=== PATIENT | female | born 1955 | race American Indian/Alaskan Native ===

== ENCOUNTER 2021-12-16 12:08 | Observation (INO) | payer OTHER, MEDICARE ==
[2021-12-16] MEDS ORDERED: SODIUM CHLORIDE 0.9% 1000 ML 1,000 ML IV ONE (14:36)
[2021-12-16] MEDS ORDERED: ONDANSETRON 4 MG/2 ML INJ IV ONE (14:37)
[2021-12-16] MEDS ORDERED: MECLIZINE 25 MG TAB PO ONE (14:37)
--- NOTE | 2021-12-16 15:43 | XRay Report ---
CHEST 1 VIEW, 12/16/2021 3:16 PM CLINICAL INFORMATION/INDICATION: Syncope COMPARISON: None. FINDINGS: SUPPORT DEVICES: None. HEART: The cardiac silhouette is normal in size. LUNGS/PLEURA: The lungs are clear of focal airspace disease or significant pleural effusion. ADDITIONAL FINDINGS: No additional acute findings. IMPRESSION: 1. No evidence of acute cardiopulmonary process. Signer Name: Amada Guevara MD Signed: 12/16/2021 3:38 PM Workstation Name: [id number]
[2021-12-16 15:55] LABS: Basophils # (Auto) 0.1 K/mm3 (0.0-0.1); Basophils % (Auto) 0.7 % (0.0-1.8); Eosinophils % (Auto) 0.1 % (0.0-4.3); Hematocrit 43.6 % (30.3-42.9); Hemoglobin 13.7 gm/dl (10.1-14.3); Lymphocytes # (Auto) 0.9 K/mm3 (1.2-5.4); Lymphocytes % (Auto) 7.5 % (13.4-35.0); Mean Corpuscular HGB Conc 31 % (30-34); Mean Corpuscular Volume 92 fl (79-97); Monocytes # (Auto) 0.3 K/mm3 (0.0-0.8); Monocytes % (Auto) 2.5 % (0.0-7.3); Platelet Count 284 K/mm3 (140-440); Red Blood Count 4.76 M/mm3 (3.65-5.03); Red Cell Distribution Width 13.5 % (13.2-15.2)
[2021-12-16 16:03] LABS: INR 0.92 (0.87-1.13)
[2021-12-16 16:21] LABS: Alanine Aminotransferase 34 units/L (7-56); Albumin 4.3 g/dL (3.9-5); BUN/Creatinine Ratio 26; Blood Urea Nitrogen 18 mg/dL (7-17); Calcium 10.4 mg/dL (8.4-10.2); Creatine Kinase MB 4.6 ng/mL (0.0-4.0); Hemolysis Index 11
--- NOTE | 2021-12-16 16:29 | Cat Scan Report ---
CT head/brain wo con INDICATION: Syncope. TECHNIQUE: Routine CT head. All CT scans at this location are performed using CT dose reduction for A JIMMY by means of automated exposure control. COMPARISON: None. FINDINGS: Intracranial: Robert-white matter differentiation loss in the inferior right cerebellum. No intracrania l hemorrhage. No extra axial collection. No hydrocephalus. No herniation. Sinuses: Paranasal sinuses and mastoid air cells are essentially clear. Orbits: Globes are intact. Calvarium: No acute fracture. IMPRESSION: 1. Acute infarction seen in the right PICA distribution of the cerebellum. Informed Dr. Buitrago at 3:24 Signer Name: Shabbir Hillman MD Signed: 12/16/2021 4:24 PM Workstation Name: [id number]
[2021-12-16] MEDS ORDERED: hydrALAZINE 20 MG/1 ML INJ IV ONE (16:55)
[2021-12-16] MEDS ORDERED: cloNIDine 0.2 MG TAB ONE (16:59)
--- NOTE | 2021-12-16 17:16 | Consultation ---
History of Present Illness History of present illness: [facility] Consult Note # Demographics Consult Type: Acute Stroke Level 2 (4.5-24 hrs) Patient Location: Emergency Room First Name: Hilda Last Name: Mahendra Date of : 1955 Age: 66 Gender: Female Facility: [facility] Time of Initial Page ( Time): 12/16/2021, 16:58 Time of Return Call ( Time): 12/16/2021, 16:59 # HPI Chief Complaint: dizziness History: 66F presents with dizziness/vertigo. [place] dizzy, lightheaded and sick to her stomach, symptom onset at 1000 this morning. Still dizzy/lightheaded on arrival, but exam otherwise normal. Hypertensive to . CTH showed an acute infarct in the right cerebellum. # Scores Time of exam and NIHSS (): 12/15/2021, 13:13 Level of Consciousness 1a: [0] = Alert; keenly responsive LOC Questions 1b: [0] = Answers both questions correctly LOC Commands 1c: [0] = Performs both tasks correctly Best Gaze 2: [0] = Normal Visual 3: [0] = No visual loss Facial Palsy 4: [0] = Normal symmetrical movements Motor Arm Left 5a: [0] = No drift Motor Arm Right 5b: [0] = No drift Motor Leg Left 6a: [0] = No drift Motor Leg Right 6b: [0] = No drift Limb Ataxia 7: [0] = Absent Sensory 8: [0] = Normal Best Language 9: [0] = No aphasia Dysarthria 10: [0] = Normal Extinction and Inattention 11: [0] = No abnormality NIHSS Total: 0 # Data Time Head CT personally read by me ( Time): 12/16/2021, 17:[address]: no bleed per radiologist read small, wedged-shaped hypodensity in the inferior right cerebellum consistent with an acute/subacute infarction # Assessment Impression: Ischemic Stroke (Acute) # Plan Thrombolytic/Intervention: NOT IV Thrombolysis or IA Intervention candidate Thrombolytic Exclusion: > 4.5 hours Intraarterial Exclusion: clinically consistent with small vessel disease Target Blood Pressure: SBP < 220 DBP < 105 Labs: hemoglobin A1c lipid panel Imaging: (urgency: STAT): CT Angiogram Head and CT Angiogram Neck AND call back with results if abnormal Imaging: (urgency: routine): MR Angiogram Head without contrast Diagnostic Test: echo with bubble study Therapy/Evaluation: PT/OT evaluation speech/swallow consultation Medication: ASA 325 x1 then 81daily Atorvastatin 80, then tailor daily dose to LDL < 70 goal If <50% stenosis of cervical ICAs, would start Plavix 300 x1 then 75 daily x3 weeks DVT Prophylaxis: SCD chemical DVT prophylaxis Other: consult on-site neurology service for full work-up and evaluation recommendations permissive hypertension telemetry monitoring I have discussed my recommendations with the referring provider Disposition: admit # Logistics Telemedicine: Interactive 2 way audio and visual telecommunication technology was utilized during this visit Electronically signed at 12/16/2021 17:15 (Eastern Time) by David Wright MD Medications and Allergies Allergies Allergy/AdvReac Type Severity Reaction Status Date / Time Penicillins Allergy Unknown Verified 12/16/21 13:53 Sulfa (Sulfonamide Allergy Swelling Verified 12/16/21 13:53 Antibiotics) Physical Examination - Vital Signs Vital Signs: Vital Signs Temp Pulse Resp BP Pulse Ox 97.4 F L 54 L 20 209/87 99 12/16/21 13:54 12/16/21 13:54 12/16/21 13:54 12/16/21 13:54 12/16/21 13:54 Results - Laboratory Findings CBC and BMP: 12/16/21 15:26 12/16/21 15:26 Abnormal Lab Findings: Abnormal Labs 12/16/21 12/16/21 15:26 15:26 WBC 12.5 H Hct 43.6 H Lymph % (Auto) 7.5 L Lymph # (Auto) 0.9 L Seg Neutrophils % 89.2 H Seg Neutrophils # 11.1 H BUN 18 H Glucose 152 H Calcium 10.4 H CK-MB (CK-2) 4.6 H
[2021-12-16] MEDS ORDERED: cloNIDine 0.2 MG TAB PO ONE (17:17)
--- NOTE | 2021-12-16 18:18 | Cat Scan Report ---
CT angio neck, CT angio head HISTORY: CVA COMPARISON: CT head from same day. TECHNIQUE: CTA of the neck and head is performed after IV contrast. 3-D/MIP reformats were postproces sed. Percentage stenosis is determined by direct quantitative measurements of diseased internal jin tid artery diameter compared with normal distal internal carotid artery reference segments or by crit eria similar to NASCET where applicable. All CT scans at this location are performed using CT dose re duction for ALARA by means of automated exposure control. FINDINGS: CTA NECK: Aortic arch: No significant abnormality. Cervical vertebral arteries: Diminutive right vertebral artery. No occlusion or hemodynamically signi ficant stenosis. Common Carotid arteries: No occlusion or hemodynamically significant stenosis. Internal carotid arteries: No occlusion or hemodynamically significant stenosis. CTA HEAD: Intracranial internal carotid arteries: No occlusion or significant stenosis. Anterior cerebral arteries: No occlusion or significant stenosis. Middle cerebral arteries: No occlusion or significant stenosis. Intracranial vertebral arteries: No occlusion or significant stenosis. Basilar artery: No occlusion or significant stenosis. Posterior cerebral arteries: No occlusion or significant stenosis. No aneurysm. Additional findings: None. IMPRESSION: 1. CTA NECK: No occlusion or significant stenosis of the carotid or vertebral arteries. 2. CTA HEAD: No occlusion or significant stenosis of the major intracranial vasculature. Signer Name: Shabbir Hillman MD Signed: 12/16/2021 6:14 PM Workstation Name: [email or web address]) by [id number]
[2021-12-16] MEDS ORDERED: oxyCODONE /ACETAMINOPHEN 5-325MG TAB PO PRN (18:27)
[2021-12-16] MEDS ORDERED: HYDROmorphone 1 MG/1 ML INJ IV PRN (18:27)
[2021-12-16] MEDS ORDERED: ONDANSETRON 4 MG/2 ML INJ IV PRN (18:27)
[2021-12-16] MEDS ORDERED: MAGNESIUM HYDROXIDE (MOM) ORAL LIQD UDC PO PRN (18:27)
[2021-12-16] MEDS ORDERED: METOCLOPRAMIDE 10 MG TAB PO PRN (18:27)
[2021-12-16] MEDS ORDERED: PROMETHAZINE 25 MG RECT SUPP PR PRN (18:27)
[2021-12-16] MEDS ORDERED: ALBUTEROL 2.5 MG/3 ML NEBU IH PRN (18:27)
[2021-12-16] MEDS ORDERED: ACETAMINOPHEN 325 MG TAB PO PRN (18:27)
--- NOTE | 2021-12-16 18:27 | History and Physical Report ---
History of Present Illness Chief complaint: I felt sick History of present illness: 66 YO Female with Obesity, HTN presents to ED for evaluation. Patient reports "I feel sick". Patient states that while at work today she experienced a sudden onset of nausea, dizziness, lightheadedness and feeling as though she was going to pass out. EMS was notified and upon arrival the patient was found to be in distress. The patient was subsequent transported to [facility] via private vehicle for further care and evaluation of the aforementioned symptoms. The patient was seen and evaluated in the emergency department. All lab and imaging studies reviewed. Patient found to have a neurologic deficit as well as clinical symptoms consistent with CVA complicated by accelerated hypertension, as well as systemic inflammatory response syndrome. Teleneurology consulted in ED. Patient deemed outside therapeutic window for tPA. Patient placed in observation status and admitted to medical floor and initiated on dual antiplatelet therapy. Patient denies fever, chills, chest pain, palpitation productive cough, skin rash, recent contact, known exposure to COVID-19. No prior mission for review. No medication listed at time of admission for reconciliation. Advanced care planning conducted in ED. Past History Past Medical History: hypertension, other (See HPI) Past Surgical History: No surgical history, Other (Reviewed) Social history: single. denies: smoking, alcohol abuse, prescription drug abuse Family history: diabetes, hypertension Medications and Allergies Allergies Allergy/AdvReac Type Severity Reaction Status Date / Time Penicillins Allergy Unknown Verified 12/16/21 13:53 Sulfa (Sulfonamide Allergy Swelling Verified 12/16/21 13:53 Antibiotics) Review of Systems Constitutional: no weight loss, no weight gain, no chills, no sweats Ears, nose, mouth and throat: no ear pain, no decreased hearing, no nasal congestion, no nasal discharge Breasts: no change in shape, no swelling Cardiovascular: no chest pain, no orthopnea, no palpitations, no rapid/irregular heart beat, no syncope Respiratory: no cough, no excessive sputum, no shortness of breath Gastrointestinal: no abdominal pain, no nausea, no diarrhea, no change in bowel habits, no hematemesis Genitourinary Female: no pelvic pain, no flank pain, no dysuria, no urinary frequency, no stress incontinence Rectal: no pain, no incontinence, no bleeding Musculoskeletal: no neck stiffness, no neck pain, no arm numbness/tingling, no low back pain, no leg numbness/tingling Integumentary: no rash, no pruritis, no redness, no sores, no boils Neurological: paralysis, lack of coordination, gait dysfunction, motor disturbance Psychiatric: no anxiety, no change in sleep habits, no insomnia, no hypersomnia, no change in libido Endocrine: no cold intolerance, no heat intolerance, no polydipsia, no polyuria, no excessive sweating Hematologic/Lymphatic: no easy bruising Allergic/Immunologic: no wheezing Exam - Constitutional Vitals: Temp Pulse Resp BP Pulse Ox 97.4 F L 55 L 20 211/89 99 12/16/21 13:54 12/16/21 17:18 12/16/21 13:54 12/16/21 17:18 12/16/21 13:54 General appearance: Present: mild distress, obese - EENT Eyes: Present: PERRL ENT: hearing intact, clear oral mucosa - Neck Neck: Present: supple, normal ROM - Respiratory Respiratory effort: normal Respiratory: bilateral: CTA - Cardiovascular Heart Sounds: Present: S1 & S2. Absent: rub, click - Extremities Extremities: pulses symmetrical, No edema Peripheral Pulses: within normal limits - Abdominal General gastrointestinal: Present: soft, non-tender, non-distended, normal bowel sounds Female genitourinary: Present: normal - Integumentary Integumentary: Present: clear, warm, dry - Musculoskeletal Musculoskeletal: gait normal, strength equal bilaterally - Psychiatric Psychiatric: appropriate mood/affect, intact judgment & insight - Neurologic Neurologic: CNII-XII intact, moves all extremities HEART Score - HEART Score Troponin: Troponin T < 0.010 ng/mL (0.00-0.029) 12/16/21 15:26 Results - Labs CBC & Chem 7: 12/16/21 15:26 12/16/21 15:26 Labs: Abnormal lab results 12/16/21 12/16/21 Range/Units 15:26 15: WBC 12.5 H (4.5-11.0) K/mm3 Hct 43.6 H (30.3-42.9) % Lymph % (Auto) 7.5 L (13.4-35.0) % Lymph # (Auto) 0.9 L (1.2-5.4) K/mm3 Seg Neutrophils % 89.2 H (40.0-70.0) % Seg Neutrophils # 11.1 H (1.8-7.7) K/mm3 BUN 18 H (7-17) mg/dL Glucose 152 H (65-100) mg/dL Calcium 10.4 H (8.4-10.2) mg/dL CK-MB (CK-2) 4.6 H (0.0-4.0) ng/mL Assessment and Plan - Patient Problems (1) CVA (cerebral vascular accident) Current Visit: Yes Status: Acute Plan to address problem: CVA protocol: CT head, neuro check, seizure precautions, aspiration precautions, physical therapy consult, Occupational Therapy consulted, speech therapy c onsulted, dual antiplatelet therapy, lipid panel, statin therapy. Teleneurology consulted in ED. (2) Accelerated hypertension Current Visit: Yes Status: Acute Plan to address problem: Monitor blood pressure every shift, continue medical management. Permissive hypertension overnight. (3) Diabetes Current Visit: Yes Status: Acute Plan to address problem: Consistent carbohydrate diet, Accu-Chek, hypoglycemia protocol, insulin protocol. (4) Obesity hypoventilation syndrome Current Visit: Yes Status: Acute Plan to address problem: Balanced diet, increase physical activity at discharge, outpatient pulmonary f ollow-up for sleep study. (5) Systemic inflammatory response syndrome Current Visit: Yes Status: Acute Plan to address problem: CBC, chest x-ray, urinalysis, empiric IV antibiotic therapy x1 dose. (6) DVT prophylaxis Current Visit: Yes Status: Acute Plan to address problem: SCD to bilateral lower extremities while in bed, patient is ambulatory (7) Advance care planning Current Visit: Yes Status: Acute Plan to address problem: This is a case noted, care plan discussed, diagnosis discussed, prognosis discussed, patient is full code. Patient knowledges understanding and agreement with care plan, +30 minutes.
[2021-12-16] MEDS ORDERED: cloNIDine 0.1 MG TAB ONE (18:32)
--- NOTE | 2021-12-16 18:32 | Emergency Department Report ---
ED General Adult HPI - General Chief complaint: Syncope Stated complaint: SYNCOPE/NAUSEA VOMITING Time Seen by Provider: 12/16/21 14:28 Source: patient, family Mode of arrival: Wheelchair Limitations: No Limitations - History of Present Illness Initial comments: 66 years old with dizziness vertigo and nausea since 10 am this orning while at work, no syncope no chest pain no sob, -: Sudden, hour(s) Location: head Improves with: none Worsens with: none - Related Data Allergies Allergy/AdvReac Type Severity Reaction Status Date / Time Penicillins Allergy Unknown Verified 12/16/21 13:53 Sulfa (Sulfonamide Allergy Swelling Verified 12/16/21 13:53 Antibiotics) ED Review of Systems ROS: Stated complaint: SYNCOPE/NAUSEA VOMITING Other details as noted in HPI Constitutional: denies: chills, fever Eyes: denies: eye pain, eye discharge, vision change ENT: denies: ear pain, throat pain Respiratory: denies: cough, shortness of breath, wheezing Cardiovascular: denies: chest pain, palpitations Endocrine: no symptoms reported Gastrointestinal: denies: abdominal pain, nausea, diarrhea Genitourinary: denies: urgency, dysuria, discharge Musculoskeletal: denies: back pain, joint swelling, arthralgia Skin: denies: rash, lesions Neurological: denies: headache, weakness, paresthesias Psychiatric: denies: anxiety, depression Hematological/Lymphatic: denies: easy bleeding, easy bruising ED Past Medical Hx - Past Medical History Hx Hypertension: Yes Hx CVA: No ED Physical Exam - General Limitations: No Limitations General appearance: alert, in no apparent distress - Head Head exam: Present: atraumatic, normocephalic - Eye Eye exam: Present: normal appearance - ENT ENT exam: Present: mucous membranes moist - Neck Neck exam: Present: normal inspection - Respiratory Respiratory exam: Present: normal lung sounds bilaterally. Absent: respiratory distress - Cardiovascular Cardiovascular Exam: Present: regular rate, normal rhythm. Absent: systolic murmur, diastolic murmur, rubs, gallop - GI/Abdominal GI/Abdominal exam: Present: soft, normal bowel sounds - Extremities Exam Extremities exam: Present: normal inspection - Back Exam Back exam: Present: normal inspection - Neurological Exam Neurological exam: Present: alert, oriented X3 - Psychiatric Psychiatric exam: Present: normal affect, normal mood - Skin Skin exam: Present: warm, dry, intact, normal color. Absent: rash ED Course Vital Signs 12/16/21 12/16/21 13:54 17:18 Temperature 97.4 F L Pulse Rate 54 L 55 L Respiratory 20 Rate Blood Pressure 209/87 211/89 O2 Sat by Pulse 99 Oximetry - Reevaluation(s) Reevaluation #1: 12/16/21 18:29 stroke work up showed CVA in rt cerebellum , outside window fot TPA , neurology consult , CTA done no LVO will admit for stroke work up ED Medical Decision Making - Lab Data Result diagrams: 12/16/21 15:26 12/16/21 15:26 Critical care attestation.: If time is entered above; I have spent that time in minutes in the direct care of this critically ill patient, excluding procedure time. ED Disposition Clinical Impression: Dizziness, CVA (cerebral vascular accident) Disposition: ADMITTED INPATIENT Is pt being admited?: Yes Does the pt Need Aspirin: Yes Condition: Stable Referrals: GERALDINE WALKER RN [Primary Care Provider] - 3-5 Days
[2021-12-16] MEDS ORDERED: cloNIDine 0.1 MG TAB PO ONE (18:33)
[2021-12-17] MEDS: CLOPIDOGREL 75 MG TAB PO SCH ×2 (03:17→09:45)
[2021-12-17 08:28] VITALS: BP 129/96
[2021-12-17] MEDS ORDERED: ASPIRIN 325 MG TAB PO SCH (10:00)
--- NOTE | 2021-12-17 11:40 | Vascular Lab Report ---
DUPLEX DOPPLER ULTRASOUND CAROTID, BILATERAL INDICATION / CLINICAL INFORMATION: stroke. COMPARISON: CTA neck 12/16/2021. FINDINGS: RIGHT CAROTID: Mild calcified atherosclerotic plaque. Moderate intimal thickening. - PLAQUE ESTIMATE (%): < 50% - CCA velocity: 80 cm/sec. - ICA peak systolic velocity: 84 cm/sec. - ICA/CCA PSV Ratio: Less than 2. Right Vertebral Artery: Antegrade flow. LEFT CAROTID: Mild calcified atherosclerotic plaque. Moderate intimal thickening. - PLAQUE ESTIMATE (%): < 50% - CCA velocity: 108 cm/sec. - ICA peak systolic velocity: 74 cm/sec. - ICA/CCA PSV Ratio: Less than 2. Left Vertebral Artery: Antegrade flow. IMPRESSION: 1. Right Internal Carotid Artery: Less than 50% diameter stenosis. 2. Left Internal Carotid Artery: Less than 50% diameter stenosis. Velocity criteria are extrapolated from diameter data as defined by the Society of Radiologists in Ul trasound Consensus Conference, Radiology 2003; 229;340-346. NO STENOSIS (NORMAL) - Plaque = none; ICA PSV < 125 cm/sec; ICA/CCA PSV Ratio < 2.0 <50% STENOSIS - Plaque < 50%; ICA PSV < 125 cm/sec; ICA/CCA PSV Ratio < 2.0 50-69% STENOSIS - Plaque > 50%; ICA PSV = 125-230 cm/sec; ICA/CCA PSV Ratio = 2.0-4.0 >70% BUT <100% STENOSIS - Plaque > 50%; ICA PSV > 230 cm/sec; ICA/CCA PSV Ratio > 4.0 NEAR OCCLUSION - Plaque = visible lumen; ICA PSV = high/low/none; ICA/CCA PSV Ratio = variable TOTAL OCCLUSION - Plaque = no lumen; ICA PSV = none; ICA/CCA PSV Ratio = N/A Scribed by: Juli Ch RDMS, RVT Scribed: 12/17/2021 9:21 AM I have reviewed the images, agree with this report, and edited this report as needed. Signer Name: Chago Barron MD Signed: 12/17/2021 11:35 AM Workstation Name: [id number]
--- NOTE | 2021-12-23 20:03 | Electrocardiograph Report ---
[facility] Test Date: 2021-12-16 Test Time: 17:04:14 Pat Name: JOHNATHAN MOORE Department: Room: [place] [address] Gender: F Applications Support Analyst: SUSHILA : 1955 Requested By: DOUG GREEN Order Number: [id number] Reading MD: Armando Fonseca Measurements Intervals [place] Rate: 57 P: -22 AK: 243 QRS: 6 QRSD: 80 T: 130 QT: 430 QTc: 419 Interpretive Statements Sinus rhythm,BRADYCARDIA Ventricular premature complex Prolonged AK interval Anterior infarct, old Abnormal T, consider ischemia, lateral leads No previous ECG available for comparison Electronically Signed On 12-23-2021 20:03:21 EST by Armando Fonseca
== END 2021-12-17 14:00 | disposition left against medical advice (07) ==
LOC: ED 12:08 → 4A 18:29
PROVIDERS: ADMIT Internal Medicine; ATTEND Internal Medicine
DX: I63.9 Cerebral infarction, unspecified (principal); R65.10 Systemic inflammatory response syndrome (SIRS) of non-infectious origin without acute organ dysfunction; I10 Essential (primary) hypertension; E11.9 Type 2 diabetes mellitus without complications; E66.2 Morbid (severe) obesity with alveolar hypoventilation; R42 Dizziness and giddiness; R29.700 NIHSS score 0; Z68.33 Body mass index [BMI] 33.0-33.9, adult; Z79.899 Other long term (current) drug therapy; Z98.890 Other specified postprocedural states
CPT/HCPCS: 36415; 70450; 70496; 70498; 71045; 80053; 82550; 82553; 84484; 85025; 85610; 92610; 93005; 93306; 93880; 96361; 96374; 99285; G0378; J2405; J7030; Q9967; Q0162; C8929